=== PATIENT | female | born 1980 | race Caucasian/White ===

== ENCOUNTER 2020-07-26 06:36 | Outpatient (REF) | payer OTHER, SELFPAY ==
[2020-07-26] VITALS (7 sets, daily range): BP systolic 114–136; BP diastolic 53–83; PULSE 69–93; RESP 16–20; TEMP 36.2–36.7; O2SAT 98–100; BMI 35.2
[2020-07-26 10:00] LABS: Appearance CSF CLEAR; CSF Tube # 1
[2020-07-26 10:10] LABS: Glucose CSF 59 mg/dL; Total Protein CSF 33.1 mg/dL (15-45)
[2020-07-26 10:48] LABS: Lymphocytes CSF 100 %
--- NOTE | 2020-07-26 11:07 | PM.NEU.LP ---
Lumbar Puncture Lumbar Puncture Note Risks and benefits of lumbar puncture were discussed in detail in the office including possibility of low back pain, nerve injury, infection, allergy to medicine or local anesthesia, leg pain and numbness, or intractable headache that might require similar procedure for treatment. Patient was placed in left lateral position. Lower lumbar area was cleaned with Betadine and draped. 1% lidocaine was injected in L4-5 space. A 20 gauge spinal needle was introduced and dura was punctured. Spinal fluid pressure was checked. Opening pressure was 38 cm water. Trocar was replaced and needle removed. Area was cleaned and a Band-Aid applied. Patient tolerated procedure quite well and CSF was sent to the lab.
[2020-07-26 11:32] LABS: Appearance CSF CLEAR; CSF Tube # 4; Color CSF COLORLESS
[2020-07-26 11:34] LABS: Red Blood Cell CSF 2 MM*3; White Blood Cell CSF 2 MM*3
== END 2020-07-26 11:00 | disposition home or self-care (01) ==
LOC: HO.MS 06:36
PROVIDERS: PCP Internal Medicine; Visit Provider Psychiatry & Neurology Neurology
PROC: 009U3ZZ Drainage of Spinal Canal, Percutaneous Approach (ICD-10-PCS; CPT 62270; principal; 2020-07-26 08:00)
DX: G93.2 Benign intracranial hypertension (principal); H47.10 Unspecified papilledema
CPT/HCPCS: 62270; 82945; 84157; 89051

== ENCOUNTER 2020-09-27 11:33 | Outpatient (REF) | payer OTHER, SELFPAY | END 2020-09-27 11:34 | disposition home or self-care (01) | LOC: HO.LAB 11:33 | PROVIDERS: Visit Provider Internal Medicine | DX: Z20.822 Contact with and (suspected) exposure to COVID-19 (principal) | CPT/HCPCS: 36415; C9803; U0003 ==

== ENCOUNTER 2021-10-03 10:22 | Outpatient (REF) | payer OTHER, SELFPAY ==
[2021-10-03 10:48] LABS: Binax Now Covid-19 Ag Negative (Negative)
[2021-10-03 10:49] LABS: Binax Internal Control QC Valid; Binax Performed by: HO.BONILM
== END 2021-10-03 10:23 | disposition home or self-care (01) ==
LOC: HO.HMGCLDS 10:22
PROVIDERS: Visit Provider Nurse Practitioner Family
DX: Z13.89 Encounter for screening for other disorder (principal)

== ENCOUNTER 2025-03-02 10:09 | Emergency (ER) | payer OTHER, SELFPAY ==
[2025-03-02 10:14] VITALS: BP 132/100; PULSE 106; RESP 16; TEMP 36.6; O2SAT 95; BMI 39.2
[2025-03-02 10:30] LABS: MANUAL DIFF FLAG NO
[2025-03-02 10:34] LABS: Basophils Percent Auto 0.4 % (0-2); Eosinophils Percent Auto 0.1 % (0-4); Hematocrit 45.3 % (37.0-47.0); Hemoglobin 15.4 g/dl (12.0-16.0); Imm Gran Abs Auto 0.03 X10*3/uL (0.00-0.03); Imm Gran Pct Auto 0.3 % (0.0-0.4); Lymphocytes Absolute Auto 1.4 X10*3/uL (1.2-4.9); Lymphocytes Percent Auto 15.4 % (20-40); Mean Corpuscular Hemoglobin 28.7 pg (27.0-33.0); Mean Corpuscular Volume 84.4 fL (80.0-98.0); Mean Platelet Volume 8.8 fL (9.4-12.3); Monocytes Absolute Auto 0.8 X10*3/uL (0.1-1.2); Monocytes Percent Auto 8.6 % (2-11); Neutrophils Absolute Auto 6.7 x10*3/uL (2.0-8.3); Neutrophils Percent Auto 75.2 % (45-73); Platelet Count 293 X10*3/uL (160-400); Red Blood Count 5.37 X10*6/uL (4.20-5.50); Red Cell Distribution Width 12.7 % (11.0-16.0); White Blood Count 8.9 X10*3/uL (4.8-10.8)
[2025-03-02 10:57] LABS: Alanine Aminotransferase 58 U/L (0-31); Albumin Level 4.6 g/dL (3.5-5.0); Alkaline Phosphatase 90 U/L (39-117); Anion Gap 11 (12-20); Aspartate Amino Transferase 38 U/L (5-31); Bilirubin Direct 0.2 mg/dL (0.0-0.5); Bilirubin Total 0.6 mg/dL (0.0-1.0); Blood Urea Nitrogen 7 mg/dL (9-16); Calcium 8.8 mg/dL (8.4-10.2); Carbon Dioxide 16 mmol/L (22-29); Chloride 112 mmol/L (96-108); Creatinine Clr Calc Pharmacy 97.2; Estimated Glomerular Filt Rate > 60; Glucose Random 109 mg/dL (60-115); Potassium 2.9 mmol/L (3.3-5.1); Sodium 136 mmol/L (135-145); Total Protein 7.3 g/dL (6.5-8.0)
[2025-03-02 11:52] LABS: Appearance Urine Clear; Color Urine Yellow; Glucose Urine UA Negative (Negative); Leukocyte Esterase Urine Trace (Negative); Nitrite Urine Negative (Negative); Specific Gravity - Urine <= 1.005 (1.005-1.025); UMIC TRIGGER UACC YES; Urine Blood Negative (Negative); Urine Ketones Negative (Negative); Urine Protein Negative (Neg-Trace)
[2025-03-02 12:01] LABS: Bacteria Urine 1+ (None Seen); Hyaline Casts Urine 0-2 /LPF (0-2); RBC Urine 0-2 /HPF (0-2); WBC Urine 0-5 /HPF (0-5)
--- OUTSIDE RECORDS SUMMARY | 2025-03-02 12:09 | XMS_ITS | Clinical Summary ---
Author Organization [facility] Address [address] [place] [address] Phone Care Team Providers Care Lifter Driver Name Role Phone Jaymie Montes MD Primary Care Prov ider Allergies Active Allergy Reactions Criticality Noted Date Comments Doxycycline Diarrhea 10/10/2021 Penicillins Rash 08/09/2006 Medications acetaZOLAMIDE (DIAMOX) 500 mg 12 hr capsule Take 250 mg by mouth 1 (one) time each day. 1 Active omeprazole (PriLOSEC) [address] capsule Take 1 capsule (40 mg total) by mouth 1 (one) time each day. 90 each 3 5 11/12/19 26 Active hyoscyamine (ANASPAZ,LEVSIN) 0.125 mg tabletIndications :Irritable bowel syndrome with both constipation and diarrhea Take 1 tablet (0.125 mg total) by mouth 3 (three) times a day before meals. 90 tablet 2 5 03/09/20 25 Active Active Problems Problem Noted Date Diagnosed Date Migraines 01/02/2022 Overview (08/05/2024): Optic migraines Pseudotumor cerebri 05/16/2015 Overview (08/05/2024): Spinal 12/2016 Obesity 05/16/2015 Assessment & Plan (11/12/2024 3:29 PM EST): BMI is 40.7. Patient has a pseudotumor cerebri. She has pending an appointment with weight management in May. Ocular migraine 11/28/2011 Anxiety 11/28/2011 Vitamin D deficiency 06/21/2010 Encounters Date Type Department Care Team Description 02/11/2025 Telephone Gastroenterology - [address] [facility] [address] [place] [address] Tara Malone MD 12/31/2024 10:45 AM EDT Office Visit Orthopedic Surgery - [place] [address] [facility] [address] [place] [phone] Adarsh Dodd, YVETTE Pain in left foot (Primary Dx); Pes planus of both feet; Equinus contracture of left ankle; Plantar fasciitis 12/09/2024 3:00 PM EDT Office Visit Gastroenterology - 299 [facility] [address] [phone] Tara Malone MD Irritable bowel syndrome with both constipation and diarrhea (Primary Dx) from Last 3 Months Immunizations Name Administration Dates Next Due Influenza trivalent, 0.5mL, preservative free (Fluarix; FluLaval; Fluzone) ages 6mo and older (Afluria) 3 years and older 10/11/2014,07/30/2012,11/28/2011,2009,10/04/2008 Tdap Tetanus diptheria acell ular pertussis (Boostrix; Adacel) 7yo and older 08/01/2023,08/11/2012,06/19/2010 Surgical History Surgery Date Site/Laterality Comments CHOLECYSTECTOMY 09/23/2008 PROCEDURE: HISTORICAL CHOLECYSTECTOMY EYE SURGERY PROCEDURE: HISTORICAL EYE SURGERY TONSILLECTOMY PROCEDURE: HISTORICAL TONSILLECTOMY COLONOSCOPY W/ POLYPECTOMY 08/25/2021 SSA ESOPHAGOGASTRODUODENOSCOPY 10/21/2023 LA grade A esophagitis, nl gastric and esophagus bx COLONOSCOPY 11/23/2024 nl, tics and hemorrhoids Medical History Medical History Date Comments Migraines DX:Migraines; CO MMENT: Optic migraines Historical Medical DX 11/28/2011 DX:Ocular migraine S/P cholecystectomy 11/28/2011 DX:S/P saroj cystectomy Pseudotumor cerebri DX:Pseudotum or cerebri; COMMENT: Dr. Tejeda Vitamin D deficiency 06/21/2010 DX:Vitamin D deficiency Anxiety 11/28/2011 DX:Anxiety Family history of colon cancer 10/11/2014 D X:Family history of colon cancer; COMMENT: Father dx with colon cancer at age 57, pt will begin colon cancer screening at 40 History of colon polyps 09/09/2021 DX:Histo ry of colon polyps; COMMENT: 08/28/21. Repeat in 3 yrs Family History Medical History Relation Name Comments No Known Problems Brother No Known Problems Daughter 1 No Known Problems Daughter 2 Colon cancer Father liver mets Throat cancer Maternal Grandfather smoker Other: Mouth Cancer Maternal Grandmother Arthritis Mother Asthma Mother Hypertension Mother Mental illness Mother Thyroid disease Mother Lung cancer Paternal Grandfather smoker Other: brain tumor Paternal Grandfather No Known Problems Paternal Grandmother Depression Sister No Known Problems Son Breast cancer Neg Hx Cervical cancer Neg Hx Diabetes Neg Hx Heart attack Neg Hx Ovarian cancer Neg Hx Stroke Neg Hx Relation Name Status Comments Brother Alive Daughter 1 Alive Daughter 2 Alive Father Maternal Grandfather Maternal Grandmother Mother Alive thyroid conditi on htn arthritis asthma Paternal Grandfather Paternal Grandmother Sister Alive Son Alive Social History Tobacco Use Types Packs/Day Years Used Date Smoking Tobacco: Former Cigarettes Q uit: 07/25/2022 Smokeless Tobacco: Never Tobacco Cessation:Counseling Given: Not Answered Alcohol Use Standard Drinks/Week Comments No 0 (1 standard drink = 0.6 oz pur e alcohol) Housing Instability Answer Date Recorde d Are you worried that in the next 2 months you may not have stable housing? Patient declined 08/14/2024 Food Access & Nutrition Answer Date Rec orded Do you have access to a vari ety of food including fruits and vegetables? Patient declined 08/14/2024 Health Literacy Answer Date Recorded How often do you need to hav e someone help you when you read instructions, pamphlets, or other written material from your doctor or pharmacy? Patient declined 08/14/2024 Caregiver: How often do you need to have someone help you when you read instructions, pamphlets, or other written material from your doctor or pharmacy? Not on file 024 Financial Risk Answer Date Recorded How hard is it for you to pa y for the very basics like food, housing, medical care, and air conditioning / heating? Patient declined 08/14/2024 Transportation Answer Date Recorded Has the lack of transportati on kept you from meetings, work, or from getting things needed for daily living? Patient declined 08/14/2024 Has the lack of transportati on kept you from medical appointments or from getting medications? Patient declined 08/14/2024 Social Isolation Answer Date Recorded How often do you feel lonely or isolated from those around you? Patient declined 08/14/2024 Food Risk Answer Date Recorded Within the past 12 months we worried whether our food would run out before we got money to buy more. Patient declined Within the past 12 months th e food we bought just didn't last and we didn't have money to get more. Patient declined 07/25 Dependent Care Answer Date Recorded Do you need help finding or paying for care for your loved ones. For example, children's ministry director or elderly care for an older adult? Patient declined 08/14/2024 Education Answer Date Recorded Do you think completing more education or training, like finishing a GED, going to college, or learning a trade, would be helpful for you? Patient declined 08/14/2024 Employment and Income Answer Date Recor ded During the last four weeks, have you been actively looking for work? Patient declined 08/14/2024 Living Situation Answer Date Recorded What is your living situation? 1 10/14/2023 Comments No Sex and Gender Information Value Date Recorded Sex Assigned at Not on file Legal Sex Female 1:06 AM EST Gender Identity Not on file Sexual Orientation Not on file Obstetrics History Last Filed Vital Signs Vital Sign Reading Time Taken Comments Blood Pressure 114/82 11/12/2024 2:52 PM EST Pulse 78 11/12/2024 2:52 PM EST Temperature 36.1 ??C (97 ??F) 11/12/2024 2:52 PM EST Respiratory Rate 18 11/12/2024 2:52 PM EST Oxygen Saturation - - Inhaled Oxygen Concentration - - Weight 123 kg (272 lb) 12/09/2024 2:52 PM EDT Height 170.2 cm (5' 7 ) 12/09/2024 2:52 PM EDT Body Mass Index 42.6 12/09/2024 2:52 PM EDT Plan of Treatment Upcoming Encounters Date Type Department Care Team (Late st Contact Info) Description 04/22/2025 10:50 AM EDT Office Visit Gastroenterology - 299 [facility] 299 [facility] [address] [place] [address] Sriram Warner PA 299 [facility] [address] [place] [address] 05/27/2025 10:30 AM EDT Consult Bariatric Surgery - [place] 175 [facility] [address] [place] [phone] Echo Peters PA 175 [facility] [address] [place] [address] 11/15/2025 3:00 PM EST Office Visit Adult Medicine [facility] [address] [place] [address] Jaymie Montes MD [address] [place] [phone] Health Maintenance Due Date Last Done Comments Breast Cancer Screening 1979 Hepatitis B Vaccines (1 of 3 - 19+ 3-dose series) 1998 HIV Screening 09/01/2022 Hepatitis C Screening 09/01/2022 Depression Screening 08/14/2025 08/14/2024, 06/02/20 24 Social Influencers of Health Screening 08/14/2025 08/14/2024 Cervical Cancer Screening: HPV 05/24/2027 05/24/2022 Cholesterol Screening (Lipid Panel) 08/22/2028 08/22/2023 Colorectal Cancer Screening: Colonoscopy 11/23/2029 11/23/2024, 10/06/2024, 08/25/2021 DTaP,Tdap,and Td Vaccines (4 - Td or Tdap) 08/01/2033 08/01/2023, 08/11/2012, 06/19/2010 Influenza Vaccine Completed 08/14/2024, , 07/30/2012, Additional history exists COVID-19 Vaccine Discontinued HIB Vaccines Aged Out No longer eligi ble based on patient's age to complete this topic HPV Vaccines Aged Out No longer eligi ble based on patient's age to complete this topic Hepatitis A Vaccines Aged Out No long er eligible based on patient's age to complete this topic IPV Vaccines Aged Out No longer eligi ble based on patient's age to complete this topic MMR Vaccines Aged Out No longer eligi ble based on patient's age to complete this topic Meningococcal ACWY Vaccine Aged Out N o longer eligible based on patient's age to complete this topic Meningococcal B Vaccine Aged Out No l onger eligible based on patient's age to complete this topic Pneumococcal Vaccine: Pediatrics (0 to 5 Years) and At-Risk Patients (6 to 64 Years) Aged Out No longer eligible based on patient's age to complete this topic RSV Immunization Patients Under 20 months Aged Out No longer eligible based on patient's age to complete this topic Varicella Vaccines Aged Out No longer eligible based on patient's age to complete this topic Procedures Procedure Name Priority Date/Time Associated Diagnosis Comments EXTERNAL COLONOSCOPY REPORT Routine 11/23/2024 11:04 AM EST DEPRESSION SCREENING Routine 06/02/2024 LIPID PANEL Routine 08/22/2023 HPV Routine 05/24/2022 from Last 3 Months or Most Recently Relevant to Health Maintenance Results * External Colonoscopy Report (11/23/2024 11:04 AM EST) Anatomical Region Laterality Modality Endoscopy us Historical Provider GI~PROCEDURE ORDERABLES F inal Result * Depression Screening (06/02/2024) Depression Screening Abstracted us Historical Provider HEALTH MAINTENANCE Final Result * Lipid panel (08/22/2023) LDL/HDL Ratio 3 0 - 4 Triglycerides 87 0 - 150 mg/dL Cholesterol 161 0 - 200 mg/dL HDL 59 >=40 mg/dL LDL Cholesterol 85 0 - 100 mg/dL Blood Venous blood specimen / Unknown us Historical Provider LAB BLOOD ORDERABLES Dipti l Result * Cervical Cancer Screening: HPV (05/24/2022) Cervical Cancer Screening: HPV Negative, abstracted Historical Provider HEALTH MAINTENANCE Final Result from Last 3 Months or Most Recently Relevant to Health Maintenance Insurance [facility] [employer] MEDICAID - [place] Care Teams Lifter Driver Relationship Specialty Start Date End Date Jaymie Montes MD [address] [place] [id number] PCP - General 08/06/22
--- NOTE | 2025-03-02 16:38 | ED.ABDPAIN ---
HPI - Abdominal Pain General Chief Complaint: Abdominal Pain Stated Complaint: Diarrhea, weakness Time Seen by Provider: 03/02/25 16:28 Source: patient Mode of arrival: ambulatory Limitations: no limitations History of Present Illness ED Provider: Dr. Susan Callaway HPI narrative: Patient comes to the emergency room complaining of abdominal discomfort, feeling dehydrated, patient has a diarrhea for 5 days. Patient states that she took couple of tablets 4 days ago, the next day she had a few more tablets, the diarrhea did not stop. Patient denies any nausea or vomiting. Patient states that she has been trying to keep up with fluids but she has a lot of diarrhea. Patient states that earlier this morning, seems that the diarrhea started to slow down. Patient complaining of occasional abdominal cramping, no significant abdominal pain. No fever or chills. No sick contacts to her knowledge. Related Data Previous Rx's ?Medication ?Instructions ?Recorded azithromycin 250 mg tablet See Rx Instructions PO .COMPLEX #6 10/03/21 tabs diphenoxylate-atropine 2.5 1 tab PO BID PRN diarrhea #7 tabs 03/02/25 mg-0.025 mg tablet (Lomotil) Allergies Allergy/AdvReac Type Severity Reaction Status Date / Time penicillin Allergy Unknown Rash Uncoded 03/02/25 10:16 Review of Systems Review of Systems Constitutional : No Weight loss, No Fever, No Chills, No Night Sweats, No Fatigue, No Malaise ENT/Mouth : No Hearing loss, No Ear Pain, No Nasal Congestion, No Sinus Pain, No Hoarseness, No sore throat, No Rhinorrhea, No Swallowing Difficulty Eyes: No Eye Pain, No Swelling, No Redness, No Foreign Body, No Discharge, No Vision Changes Cardiovascular : No Chest Pain, No SOB, No Dyspnea on Exertion, No Orthopnea, No Edema, No Palpitations Respiratory : No Cough, No Sputum, No Wheezing, No Smoke Exposure, No Dyspnea Gastrointestinal : No Nausea, No Vomiting, Complaining of copious Diarrhea, No Constipation, complaining of abdominal cramping with no significant abdominal Pain, No Hematochezia, No Melena Genitourinary : no irregular bleeding, No Dysuria, No Urinary Frequency, No Hematuria, No Urinary Incontinence, No Urgency, No Flank Pain, No Urinary Flow Changes, No Hesitancy Musculoskeletal : No joint pain, No Myalgias, No Joint Swelling Skin : No Skin Lesions, No rash Neuro : No Weakness, No Numbness, No Paresthesias, No Loss of Consciousness, No Dizziness, No Headache Psych : No Anxiety/Panic, No Depression, No SI/HI/AH/VH, No Social Issues, Heme/Lymph: No Bruising, No Bleeding,No Lymphadenopathy Endocrine : No Polyuria, No Polydipsia, No Temperature Intolerance [facility] Past Medical History Medical History (Updated 03/02/25 @ 19:23 by Susan Callaway MD) IBS (irritable bowel syndrome) Social History Social History Smoked in Last 30 Days: No Use of substances other than those prescribed or required for medical reasons: No Advance Directives: No Advance Directives Information Provided: Yes Do you have a plan to hurt others: No Plan Patient : No Physical Exam ED Vital Signs: Vital Signs - 24 hr 03/02/25 10:14 03/02/25 16:59 Temperature 98 F 97.4 F Pulse Rate 106 H 75 Respiratory Rate 16 18 Blood Pressure 132/100 H 126/92 H Pulse Oximetry 95 98 Oxygen Delivery Method Room Air Room Air BMI result Body Mass Index 39.2 Const Other: Appearance: Alert. Oriented X3. No acute distress. Eyes: Pupils equal, round and reactive to light. ENT: dryish oral mucosa, Pharynx normal. Neck: Normal inspection. Neck supple. No lymph nodes noted. No crepitus CVS: Normal heart rate and rhythm. Pulses normal. Normal S1 and S2 Respiratory: No respiratory distress. Breath sounds normal. No Wheezing. No rales Abdomen: Soft and nontender. No rigidity. No distention. Skin: Skin warm and dry. Normal skin color. Normal skin turgor. Extremities: No lower extremity edema. No Lacerations. No Rash Neuro: Oriented X 3. No motor deficit. No sensory deficit. Moving all extremities. No slurred speech. CN 2 through 12 grossly intact Psych: calm, cooperative, normal affect Course Course Course Narrative: patient's labs were drawn earlier today, patient receiving 2 L of lactated Ringer's, Lomotil, p.o. potassium chloride, Zofran Medical Decision Making Medical Decision Making [facility] Narrative: my interpretation of labs: No significant abnormality in patient's hematology, chemistry shows a potassium of 2.9 which was repleted p.o., LFTs within normal limits, lipase negative, Urine negative. a C diff PCR was ordered. However, after the above-mentioned medication, she did not have any more diarrhea I considered doing a CT scan of the abdomen/ pelvis, however, patient had significant improvement with the above-mentioned medications. Patient states that she feels much better and feels ready to be discharged home. Patient denies any abdominal pain at this time. Patient likely had a viral illness, versus gastroenteritis versus food poisoning Differential Diagnosis Differential Diagnoses: The differential diagnosis associated with the presentation includes Admission/Observation Consideration of admission/observation: Escalation of care including admission/observation considered ( given patient's initial presentation labs, observation was considered.) Lab Data MDM Lab Attestation statement: I reviewed the patient's lab results. 03/02/25 10:21 03/02/25 10:21 Labs: Lab Results 03/02/25 03/02/25 Range/Units 10:21 11:41 WBC 8.9 (4.8-10.8) X10*3/uL RBC 5.37 (4.20-5.50) X10*6/uL Hgb 15.4 (12.0-16.0) g/dl Hct 45.3 (37.0-47.0) % MCV 84.4 (80.0-98.0) fL MCH 28.7 (27.0-33.0) pg MCHC 34.0 (31.0-35.0) g/dl RDW 12.7 (11.0-16.0) % Plt Count 293 (160-400) X10*3/uL MPV 8.8 L (9.4-12.3) fL Immature Gran % (Auto) 0.3 (0.0-0.4) % Neut % (Auto) 75.2 H (45-73) % Lymph % (Auto) 15.4 L (20-40) % [place] % (Auto) 8.6 (2-11) % Eos % (Auto) 0.1 (0-4) % Baso % (Auto) 0.4 (0-2) % Lymph # (Auto) 1.4 (1.2-4.9) X10*3/uL [place] # (Auto) 0.8 (0.1-1.2) X10*3/uL Eos # (Auto) 0.0 (0.0-0.4) X10*3/uL Baso # (Auto) 0.0 (0.0-0.2) X10*3/uL Abs Immat Gran (auto) 0.03 (0.00-0.03) X10*3/uL Absolute Neuts (auto) 6.7 (2.0-8.3) x10*3/uL Absolute Nucleated RBC 0.000 (0.0-0.012) X10*3/uL Nucleated RBC % (auto) 0.0 (0.0-0.2) /100WBC Sodium 136 (135-145) mmol/L Potassium 2.9 L* (3.3-5.1) mmol/L Chloride 112 H (96-108) mmol/L Carbon Dioxide 16 L (22-29) mmol/L Anion Gap 11 L (12-20) BUN 7 L (9-16) mg/dL Creatinine 0.94 (0.5-1.4) mg/dL Estim Creat Clear Calc 97.2 Estimated GFR > 60 Random Glucose 109 (60-115) mg/dL Calcium 8.8 (8.4-10.2) mg/dL Total Bilirubin 0.6 (0.0-1.0) mg/dL Direct Bilirubin 0.2 (0.0-0.5) mg/dL AST 38 H (5-31) U/L ALT 58 H (0-31) U/L Alkaline Phosphatase 90 (39-117) U/L Total Protein 7.3 (6.5-8.0) g/dL Albumin 4.6 (3.5-5.0) g/dL Lipase 98 H (8-78) U/L Urine Color Yellow Urine Appearance Clear Urine pH 6.0 (5.0-9.0) Ur Specific [place] <= 1.005 (1.005-1.025) Urine Protein Negative (Neg-Trace) mg/dL Urine Glucose (UA) Negative (Negative) mg/dL Urine Ketones Negative (Negative) mg/dL Urine Blood Negative (Negative) Urine Nitrite Negative (Negative) Ur Leukocyte Esterase Trace H (Negative) Urine RBC 0-2 (0-2) /HPF Urine WBC 0-5 (0-5) /HPF Ur Squamous Epith Cells 3-5 (0-2) /HPF Urine Bacteria 1+ (None Seen) Hyaline Casts 0-2 (0-2) /LPF Urine Test NEGATIVE (NEGATIVE) Medications Administered Discontinued Medications Generic Name Dose Route Start Last Admin Trade Name Freq PRN Reason Stop Dose Admin Diphenoxylate HCl/Atropine 1 tab 03/02/25 19:15 03/02/25 19:15 Diphenoxylate/Atrop 2.5/0.025 Tablet PO 03/02/25 19:16 1 tab ONCE ONE Administration Lactated Ringer's 2,000 mls @ 999 mls/hr 03/02/25 16:45 03/02/25 19:18 Lr IV 03/02/25 18:45 Infused .Q2H1M JANETH Infusion Ondansetron HCl 4 mg 03/02/25 16:36 03/02/25 16:42 Ondansetron Hcl 4 Mg/2 Ml Vial IVPUSH 03/02/25 16:37 4 mg ONCE ONE Administration Potassium Chloride 40 meq 03/02/25 16:36 03/02/25 16:45 Potassium Chloride Er 20 Meq Tab.Er.Prt PO 03/02/25 16:37 40 meq ONCE ONE Administration Critical Care Time Critical Care Time Critical Care Time: Yes Total Critical Care Time: 45 Attestation: I have personally provided critical care time. Time includes review of lab data, radiology results, discussion with consultants, and monitoring for potential decompensation. Intervention performed as documented. Discharge Plan Discharge Clinical Impression: Diarrhea, Dehydration Patient Disposition: Home, Self-Care Instructions: Dehydration (ED), Acute Diarrhea (ED) Additional Instructions: Please follow-up with your primary care physician tomorrow. If you have any worsening or new symptoms, please return to the emergency room or call 911 Prescriptions: New diphenoxylate-atropine [Lomotil] 2.5-0.025 mg tablet 1 tab PO BID PRN (Reason: diarrhea) Qty: 7 0RF No Action azithromycin 250 mg tablet See Rx Instructions PO .COMPLEX Qty: 6 0RF Rx Instructions: For 250 mg dose pack: take 500 mg today (day 1), then 250 mg for 4 days (days 2-5) PO Stand Alone Forms: Work/School Release Print Language: German
[2025-03-02] MEDS: ondansetron HCL 4 MG/2 ML VIAL IVPUSH (16:42)
[2025-03-02] MEDS: Potassium Chloride ER 20 MEQ TAB.ER.PRT 40 MEQ PO (16:45)
[2025-03-02 16:46] LABS: UPreg QC Valid YES; Urine Pregnancy NEGATIVE (NEGATIVE)
[2025-03-02] MEDS: Lactated Ringers 2,000 ML 999 ML IV (16:48)
[2025-03-02 16:49] LABS: Lipase 98 U/L (8-78)
[2025-03-02 16:59] VITALS: BP 126/92; PULSE 75; RESP 18; TEMP 36.3; O2SAT 98
[2025-03-02] MEDS: Diphenoxylate/Atrop 2.5/0.025 TABLET 1 TAB PO (19:15)
--- NOTE | 2025-03-02 19:16 | PC.NURSE ---
Took over care at 19:00 medicated per mar.
[2025-03-02 19:30] VITALS: BP 119/86; PULSE 86; RESP 16; TEMP 37; O2SAT 99
== END 2025-03-02 19:31 | disposition home or self-care (01) ==
PROVIDERS: Emergency Provider Emergency Medicine; PCP Internal Medicine
DX: R10.2 Pelvic and perineal pain (principal); E86.0 Dehydration; R19.7 Diarrhea, unspecified; Z79.899 Other long term (current) drug therapy
CPT/HCPCS: 36415; 80048; 80076; 81001; 81025; 83690; 85025; 96361; 96374; 99284; 99285; J2405; J7120

== ENCOUNTER 2025-08-04 09:50 | Outpatient (AMB) | payer OTHER, SELFPAY ==
--- NOTE | 2025-08-04 09:56 | MHC.OFFVIS ---
Intake Visit Reasons: 6m Allergies penicillin Allergy (Unknown, Uncoded 03/02/25 10:16) Rash HPI Comments Details: 45 years old woman with bilateral papilledema detected in 2014 and was later diagnosed with idiopathic intracranial hypertension. She is presenting with concerns related to her visual stability and potential eye swelling. She has a history of evaluations by an lead principal technical architect specializing in the musculoskeletal building, attending routine check-ups approximately two weeks apart. Notably, she mentions persistent swelling around her eyes with absence of acute visual disturbances such as double vision or significant impairment. Her symptoms have remained stable over time, with no new developments reported, although there is ongoing concern for potential nerve cell impact if left unchecked. The patient's current regimen includes Rastazolamide (once per day, with potential escalation to twice in case of worsening conditions), Omeprazole (40 mg), Meloxicam (15 mg), and Sertraline (60 mg), alongside continuous intake of both a multivitamin and a hair, skin, and nails supplement. A weight loss intervention via Zepbound injection is anticipated following approval, given contraindications for the alternative oral medication due to adverse gastroenterological effects. [facility] Medical History (Updated 08/04/25 @ 09:58 by Xander Tejeda MD) IBS (irritable bowel syndrome) Review of Systems Narrative - Eyes: Denies double vision or significant visual changes; reports potential swelling observed. - Gastrointestinal: Reports taking Omeprazole and advised against new weight loss medication due to stomach concerns. - Musculoskeletal: Reports use of Meloxicam for management. - Psychological: Taking Sertraline for management, no acute concerns disclosed. Physical Exam Neuro Other: Mental Status: Alert and oriented to person, place, and time. Normal attention. Normal spontaneous speech, fluency, and comprehension. No obvious issues with mood and memory. Affect is appropriate. Cranial Nerves: CN II: Visual abreu full to confrontation, visual acuity intact. CN III, IV, : Pupils equal, round, reactive to light and accommodation. Extraocular movements are normal. CN V: Facial sensation is normal. CN VII: Facial movements symmetrical. CN VIII: Hearing intact to bedside conversation is normal. CN IX, X: Palate elevates symmetrically. CN XI: Shoulder shrug and head turn symmetrical. CN XII: Tongue midline without atrophy or fasciculations. Funduscopy revealed bilateral papilledema. Motor: Bulk and tone normal in all extremities. No significant muscle weakness in arms and legs. No drift. Gait: No obvious abnormality of gait noted. Extrapyramidal: Full facial expressions and blinking. No rigidity. Movements are appropriate with no tremor or abnormality. Speech: Normal; no dysarthria or tremor. Assessment & Plan Assessment & Plan (1) IIH (idiopathic intracranial hypertension): Comment: [place] at [facility] [place] Dec 2016: OP 38 cm, WBCs 1, RBCs 2, Glu 61, Pro 34.4 LP at [facility] in Jul 2020: OP 38cm, WBCs 2, RBCs 2, MRI/MRA/MRV of brain [place] [facility] [place] Oct 2016: WNL MRI brain in 2009 at : [place] MRI C spine at in 2009: straight curvature EEG in office in 2009: WNL CSF analysis at [facility] in 2009: OP: 26-27cm, Glu 59, Pro 22, WBCs 2, RBCs 2. Code(s): G93.2 - Benign intracranial hypertension Category: Medical Plan Impression: a: Idiopathic intracranial HTN b: Obesity c: Papilledema related to IIH Rec: a: Keep up with eye appts b: Continue acetazolamide 500mg one a day for now. It may be adjusted based upon her eye exam in a few days. c: Medical management for obesity, which is the critical issue in her case. She was waiting for approval for a drug for weight loss. Medications: New acetazolamide ER 500 mg PO DAILY 90 caps 1RF Coding Level of Care Code Est Pt Level 4 (38315) Diagnoses IIH (idiopathic intracranial hypertension) G93.2
--- OUTSIDE RECORDS SUMMARY | 2025-08-04 11:17 | XMS_ITS | Clinical Summary ---
Author Organization [facility] Address [address] [place] [address] Care Team Providers Care Vehicle Maintenance Supervisor Name Role Phone San SabaDev dejesus KRISTEN Primary Care Provider Source Comments PLEASE NOTE, if this patient is a minor, it may be UNLAWFUL to discuss sensitive information that is contained in these records (such as FAMILY PLANNING, MENTAL HEALTH or SUBSTANCE ABUSE) with the minor patient's parent or other person without the patient's specific authorization.[facility] Social History Tobacco Use Types Packs/Day Years Used Date Smoking Tobacco: Never Assessed Comments Unknown Sex and Gender Information Value Date Recorded Sex Assigned at Not on file Legal Sex Female 6:17 AM PDT Gender Identity Not on file Sexual Orientation Not on file Last Filed Vital Signs Vital Sign Reading Time Taken Comments Blood Pressure - - Pulse - - Temperature - - Respiratory Rate - - Oxygen Saturation - - Inhaled Oxygen Concentration - - Weight 112.9 kg (249 lb) 06/30/2015 11:11 AM EDT Height 172.7 cm (5' 8 ) 06/30/2015 11:11 AM EDT Body Mass Index 37.86 06/30/2015 11:11 AM EDT Plan of Treatment Not on file Insurance [place] MEDICA[place] [facility] Care Teams Vehicle Maintenance Supervisor Relationship Specialty Start Date End Date Dev [address] [place] [address] PCP - General Nutrition 06/30/15
--- OUTSIDE RECORDS SUMMARY | 2025-08-04 11:17 | XMS_ITS | Clinical Summary ---
Author Organization [facility] Address [address] [place] [address] Phone Care Team Providers Care Card Hanger Name Role Phone Jaymie Montes MD Primary [...] 1 tablet (0.125 mg total) by mouth 4 (four) times a day. 360 tablet 3 5 04/22/20 26 Active sertraline (ZOLOFT) 50 mg tablet Take 1 tablet (50 mg total) by mouth 1 (one) time each day. Take 1/2 tablet for 10 days, then increase to 1 tablet therafter. 30 each 5 08/25/20 25 Active meloxicam (MOBIC) 15 mg tablet Take 1 tablet (15 mg total) by mouth 1 (one) time each day. 30 tablet 2 5 10/25/19 26 Active Active Problems Problem Noted Date Diagnosed Date Irritable bowel syndrome with diarrhea Migraines 01/02/2022 Overview (08/05/2024): Optic migraines Pseudotumor cerebri 05/16/2015 Overview (08/05/2024): Spinal 12/2016 Obesity 05/16/2015 Assessment & Plan (11/12/2024 3:29 PM EST): BMI is 40.7. Patient has a pseudotumor cerebri. She has pending an appointment with weight management in May. Ocular migraine 11/28/2011 Anxiety 11/28/2011 Vitamin D deficiency 06/21/2010 Encounters Date Type Department Care Team Description 07/27/2025 3:00 PM EST Consult Orthopedic Surgery [facility] [address] [facility] [address] [place] [phone] Trev Patel MD Degenerative tear of medial meniscus of right knee (Primary Dx); Osteoarthritis of right knee, unspecified osteoarthritis type 07/26/2025 9:00 AM EST Office Visit Adult Medicine [address] [phone] Zeke Pal NP Major depressive disorder, recurrent episode with anxious distress (CMS/HCC V24) (Primary Dx); Anxiety; Marital conflict 07/22/2025 Results Follow-Up Adult [address] [phone] Caro Talbot PA 07/14/2025 9:41 AM EDT - 07/14/2025 11:59 PM EDT Hospital Encounter [facility] Ultrasound [address] [place] [phone] Right leg pain Discharge Disposition: Home or Self Care 07/13/2025 10:30 AM EDT Office Visit [facility] [address] [facility] [address] [place] [address] Adarsh Dodd, DPM Partial tear of right Achilles tendon, subsequent encounter (Primary Dx); Bone spur of posterior portion of right calcaneus; Acute pain of right knee 07/09/2025 Telephone Adult Medicine [address] [phone] Jaymie Montes MD 07/02/2025 Telephone Bariatric Surgery [address] [phone] Echo Peters PA 06/29/2025 3:00 PM EDT Office Visit Adult [address] [phone] Caro Talbot PA Right leg pain (Primary Dx); Arthritis of right knee 06/29/2025 Telephone Adult Medicine [address] [phone] Michaelle Nguyen MA 05/28/2025 Telephone Bariatric Surgery [address] [phone] Echo Peters PA 05/27/2025 10:30 AM EDT Consult [address] [phone] Echo Peters PA Morbid obesity (CMS/[facility] V24, [facility] V28); Pseudotumor cerebri from Last 3 Months Immunizations Immunization Administration Dates Next Due Influenza trivalent, 0.5mL, preservative free (Fluarix; FluLaval; Fluzone) ages 6mo and older (Afluria) 3 years and older 10/11/2014,07/30/2012,11/28/2011,2009,10/04/2008 Influenza trivalent, MDCK, 0 .5mL, preservative free (Flucelvax) 6mo and older 06/29/2025 Tdap Tetanus diptheria acell ular pertussis (Boostrix; [...] Years Used Date Smoking Tobacco: Former Cigarettes 0.5 Q uit: 07/25/2022 Smokeless Tobacco: Never Tobacco [...] your doctor or pharmacy? Not on file Financial Risk Answer Date Recorded How hard [...] care for your loved ones. For example, attendant child activity or elderly care for an older adult? [...] Date Recorded What is your living situation? Unrecognized valu e 08/14/2024 Comments No Sex and Gender Information Value Date Recorded Sex Assigned at Not on file Legal Sex Female 1:06 AM EST Gender Identity Not on file Sexual Orientation Not on file Obstetrics History Last Filed Vital Signs Vital Sign Reading Time Taken Comments Blood Pressure 136/74 07/26/2025 9:05 AM EST Pulse 80 07/26/2025 9:05 AM EST Temperature 36.8 C (98.3 F) 06/29/2025 3:11 PM EDT Respiratory Rate 14 06/29/2025 3:11 PM EDT Oxygen Saturation 98% 06/29/2025 3:11 PM EDT Inhaled Oxygen Concentration - - Weight 121 kg (266 lb) 07/27/2025 3:07 PM EST Height 170.2 cm (5' 7.01 ) 07/27/2025 3:07 PM ES T Body Mass Index 41.65 07/27/2025 3:07 PM EST Plan of Treatment Upcoming Encounters Date Type Department Care Team (Late st Contact Info) Description 08/13/2025 11:00 AM EST Evaluation Outpatient Rehabilitation [address] [phone] Chris Clements, GINI 08/16/2025 3:00 PM EST Office Visit Adult Medicine [address] [phone] Zeke Pal, DWAIN [address] [place], [place] 08/30/2025 10:00 AM EST Consult Bariatric Surgery [address] [phone] Brianda Dominguez, KRISTEN [address] [phone] 09/07/2025 3:00 PM EST Office Visit Orthopedic Surgery [facility] [address] [phone] Trev Patel MD [address] [phone] 10/25/2025 3:00 PM EST Office Visit Bariatric Surgery [address] [place] [phone] Echo Peters PA [address] [place] [phone] 11/15/2025 3:00 PM EST Office Visit Adult Medicine [facility] [address] [place], [place] [phone] Jaymie Montes MD [address] [place], [place] Health Maintenance Due Date Last Done Comments Breast Cancer Screening 1979 Hepatitis B Vaccines (1 of 3 - 19+ 3-dose series) 1998 HIV Screening 09/01/2022 Hepatitis C Screening 09/01/2022 Social Influencers of Health Screening 08/14/2025 08/14/2024 Cervical Cancer Screening: HPV 05/24/2027 05/24/2022 Colorectal Cancer Screening: Colonoscopy 11/23/2029 11/23/2024, 10/06/2024, 08/25/2021 Cholesterol Screening (Lipid Panel) 03/23/2030 03/23/2025, 08/22/2023 DTaP,Tdap,and Td Vaccines (4 - Td or Tdap) 08/01/2033 08/01/2023, 08/11/2012, 06/19/2010 RSV Immunization Adult Patients (1 - 1-dose 75+ series) 2054 Depression Screening Completed 06/29/2025, 06/02/20 24 Influenza Vaccine Completed 06/29/2025, , 10/11/2014, Additional history exists COVID-19 Vaccine Discontinued HIB [...] 5 Years) and At-Risk Patients (6 to 49 Years) Aged Out No longer eligible based on patient's age to complete this topic RSV Immunization Patients Under 20 months Aged Out No longer eligible based on patient's age to complete this topic Varicella Vaccines Aged Out No longer eligible based on patient's age to complete this topic Procedures Procedure Name Priority Date/Time Associated Diagnosis Comments VAS US DUPLEX LOWER EXT VENOUS INSUFFICIENCY RIGHT Routine 07/14/2025 10:09 AM EDT Right leg pain LIPID PANEL WITH REFLEX TO DIRECT LDL Routine 03/23/2025 8:35 AM EDT Adult general medical examination EXTERNAL COLONOSCOPY REPORT Routine 11/23/2024 11:04 AM EST DEPRESSION SCREENING Routine 06/02/2024 HM HPV Routine 05/24/2022 from Last 3 Months or Most Recently Relevant to Health Maintenance Results * Vascular US duplex lower extremity venous insufficiency right (07/14/2025 10:09 AM EDT) Anatomical Region Laterality Modality Vascular, Abdomen Ultrasound 07/21/2025 10:0 2 AM EDT Impressions 07/21/2025 10:03 AM EDT There is no evidence of thrombus or of reflux in the venous system of the right lower extremity. Code 28339 -------- FINAL REPORT -------- Dictated By: Hung De La Rosa Dictated Date: 07/21/2025 10:02 ET Assigned Physician: Hung De La Rosa Reviewed and Electronically Signed By: Hung De La Rosa Signed Date: 07/21/2025 10:03 ET Workstation ID: [id number] Transcribed By: Self Edit Transcribed Date: 07/21/2025 10:02 ET Narrative 07/21/2025 10:03 AM EDT HISTORY: The patient is a 45-year-old female with right lower extremity pain. FINDINGS: Real-time ultrasonography of the venous system of the right lower extremity is performed. The common femoral, femoral, and popliteal veins are widely patent, without evidence of thrombus. There is normal compressibility and augmentation. The visualized calf veins, as well as the greater saphenous vein, are patent. The diameter of the greater saphenous vein in the upper thigh is 5.0 mm; in the mid thigh, 3.7 mm; and in the lower thigh, 3.4 mm. No venous reflux is seen. Procedure Note Hung De La Rosa MD - 07/21/2025 HISTORY: The patient is a 45-year-old female with right lower extremitypain. FINDINGS: Real-time ultrasonography of the venous system of the rightlower extremity is performed. The common femoral, femoral, and poplitealveins are widely patent, without evidence of thrombus. There is normalcompressibility and augmentation. The visualized calf veins, as well asthe greater saphenous vein, are patent. The diameter of the greatersaphenous vein in the upper thigh is 5.0 mm; in the mid thigh, 3.7 mm; andin the lower thigh, 3.4 mm. No venous reflux is seen. IMPRESSION: There is no evidence of thrombus or of reflux in the venous system of theright lower extremity. Code 40727 -------- FINAL REPORT -------- Dictated By: Hung De La Rosa Dictated Date: 07/21/2025 10:02 ET Assigned Physician: Hung De La Rosa Reviewed and Electronically Signed By: Hung De La Rosa Signed Date: 07/21/2025 10:03 ET Workstation ID: [id number] Transcribed By: Self Edit Transcribed Date: 07/21/2025 10:02 ET us Caro Antione CH[facility] CV VASCULAR PROCEDURES Final Res ult * Lipid panel with reflex to direct LDL (03/23/2025 8:35 AM EDT) Cholesterol 159 0 - 200 mg/dL LAB CHEMISTRY METHOD 03/23/2025 1:58 PM EDT [facility] Triglycerides 94 0 - 150 mg/dL LAB CHEMISTRY METHOD 03/23/2025 1:58 PM EDT [facility] HDL 53 >=40 mg/dL LAB CHEMISTRY METHOD 03/23/2025 1:58 PM EDT [facility] LDL Calculated 87 0 - 100 mg/dL LAB CHEMISTRY METHOD 03/23/2025 1:58 PM EDT [facility] VLDL Cholesterol Jonathan 18.8 mg/dL LAB CHEMISTRY METHOD 03/23/2025 1:58 PM EDT [facility] Non HDL Chol. (LDL+VLDL) 106 <145 mg/dL LAB CHEMISTRY METHOD 03/23/2025 1:58 PM EDT [facility] Chol/HDL Ratio 3.0 0.0 - 4.4 LAB CHEMISTRY METHOD 03/23/2025 1:58 PM EDT [facility] Blood Venous blood specimen / Unknown Venipuncture / Unknown 03/23/2025 8:35 AM EDT 03/23/2025 8:35 AM EDT Jaymie Montes MD LAB BLOOD ORDERABL ES Final Result [facility] [address] [place] [address], * External Colonoscopy Report (11/23/2024 11:04 AM EST) Anatomical Region Laterality Modality Endoscopy Historical Provider GI~PROCEDURE ORDERABLES F inal Result * Depression Screening (06/02/2024) Depression Screening Abstracted Historical Provider HEALTH MAINTENANCE Final Result * Cervical Cancer Screening: HPV (05/24/2022) Pathologist [facility] Cervical Cancer Screening: HPV Negative, abstracted Historical Provider HEALTH MAINTENANCE Final Result from Last 3 Months or Most Recently Relevant to Health Maintenance Insurance [facility] [facility] Care Teams Card Hanger Relationship Specialty Start Date End Date Jaymie Montes MD [address] [place] [phone] PCP - General 08/06/22
== END 2025-08-04 10:10 | disposition home or self-care (01) ==
LOC: HO.HSM 09:51
PROVIDERS: PCP Internal Medicine; Referring Provider Internal Medicine; Visit Provider Psychiatry & Neurology Neurology
DX: G93.2 Benign intracranial hypertension (principal)
CPT/HCPCS: 99214

== ENCOUNTER → 2025-08-04 09:50 | Outpatient (BNVA) | payer OTHER, SELFPAY | PROVIDERS: PCP Internal Medicine; Referring Provider Internal Medicine; Visit Provider Psychiatry & Neurology Neurology | DX: G93.2 Benign intracranial hypertension (principal) | CPT/HCPCS: 99212 ==